=== PATIENT | female | born 1960 | race Caucasian/White ===

== ENCOUNTER 2022-06-26 07:44 | Emergency (ER) | payer BC ==
[~2022-06-26] VITALS: Ht 170.2 cm; Wt 109.0 kg
[2022-06-26] MEDS ORDERED: epiNEPHrine 1 mg/ml inj IM STA (08:16)
[2022-06-26] MEDS ORDERED: famotidine/PF IV inj 40 MG in normal saline 100ml IV soln 100 ML IV ONE (08:20)
[2022-06-26] MEDS ORDERED: methylPREDNISolone sod succ 125mg/2ml vial IV ONE (08:20)
[2022-06-26] MEDS ORDERED: diphenhydrAMINE 50 mg/ml inj IV ONE (08:20)
[2022-06-26] MEDS ORDERED: tranexamic acid 1gm/0.7% sal. 100 ML IV ONE (08:20)
[2022-06-26] MEDS ORDERED: tranexamic acid inj. 1,000 MG in normal saline 100ml IV soln 90 ML IV ONE (08:45)
[2022-06-26 09:08] LABS: ANION GAP 10 (8-16); BLOOD UREA NITROGEN 11 MG/DL (7-18); BUN/CREATININE RATIO 15.1 (6.6-38.0); CHLORIDE 103 MMOL/L (99-107); CREATININE 0.73 MG/DL (0.40-0.90); GLUCOSE 122 MG/DL (70-104); POTASSIUM 3.9 MMOL/L (3.5-5.1); SODIUM 139 MMOL/L (135-145); TOTAL CARBON DIOXIDE 26.2 MMOL/L (24-32)
[2022-06-26 09:09] LABS: ALANINE AMINOTRANSFERASE 26 U/L (12-78); ALBUMIN 3.2 G/DL (3.4-5.0); ALBUMIN/GLOBULIN RATIO 0.8 (1.1-1.5); ALKALINE PHOSPHATASE 88 IU/L (46-116); ASPARTATE AMINO TRANSFERASE 19 U/L (10-37); BASOPHILS % (AUTO) 0.5 % (0-1); BILIRUBIN,TOTAL 0.4 MG/DL (0.1-1.0); CALCIUM 8.7 MG/DL (8.5-10.1); EOSINOPHILS # (AUTO) 0.5 X10'3 (0-0.9); EOSINOPHILS % (AUTO) 6.1 % (0-6); HEMATOCRIT 41.5 % (35.0-45.0); LYMPHOCYTES # (AUTO) 1.2 X10'3 (1.1-4.8); LYMPHOCYTES % (AUTO) 13.8 % (21-51); MEAN CORPUSCULAR HEMOGLOBIN 31.7 PG (27.0-31.0); MEAN CORPUSCULAR HGB CONC 33.7 g/dL (33.0-36.5); MEAN CORPUSCULAR VOLUME 94.1 FL (78-98); MEAN PLATELET VOLUME 7.2 FL (7.4-10.4); MONOCYTES % (AUTO) 11.6 % (2-12); NEUTROPHILS # (AUTO) 5.8 X10'3 (1.8-7.7); PLATELET COUNT 251 X10'3 (140-440); RED BLOOD COUNT 4.41 X10'6 (4.20-5.60); RED CELL DISTRIBUTION WIDTH 14.7 % (11.5-14.5); TOTAL PROTEIN 7.4 G/DL (6.4-8.2); WHITE BLOOD COUNT 8.5 X10'3 (4.5-11.0); eGFR 81 ML/MIN
[2022-06-26] MEDS ORDERED: DOXY-411 PO ×3 (10:13→10:17)
[2022-06-26] MEDS ORDERED: BENZ1LOZ74 PO ×3 (10:13→10:17)
[2022-06-26] MEDS ORDERED: CHLO118L3 TOP ×3 (10:13→10:17)
[2022-06-26 10:31] VITALS: BP 122/74
== END 2022-06-26 10:52 | disposition home or self-care (01) ==
LOC: ER 07:45
DX: K12.0 Recurrent oral aphthae (principal)
CPT/HCPCS: 36415; 80053; 85025; 87081; 87880; 96374; 99283; J2930; 96372